=== PATIENT | male | born 1945 | race Hispanic/Latino ===

== ENCOUNTER → 2025-02-10 | Outpatient (CLI) | payer OTHER, MEDICARE ==
[~2025-02-10] MED LIST: GADOTERATE MEGLUMINE 10 MMOL/20 ML VIAL IV ONE
--- NOTE | 2025-02-11 03:01 | HMCIMG ---
EXAM MR Abdomen With and Without Intravenous Contrast CLINICAL HISTORY C22.0 ??? Evaluation for suspected liver cell carcinoma. TECHNIQUE Multisequence, multiplanar magnetic resonance imaging of the abdomen performed before and after intravenous contrast administration. Series acquired: 3 ??? COR SSFSE ARC (TR 738.5, TE 92.5, ET 1.0, Thk 5.0) 5 ??? AX SSFSE BH ARC (TR 676.8, TE 87.6, ET 1.0, Thk 5.0) 6 ??? AX 3D DUAL-ECHO BH (TR 6.5, TE 4.2, ET 1.0, Thk 4.4) 7 ??? AX T2 FRFSE FATSAT TALIB ARC (TR 95369.0, TE 106.5, ET 18.0, Thk 4.0) 8 ??? AX DWI b=500 FB (TR 3400.0, TE 59.0, ET 1.0, Thk 6.0) 10 ??? G+ COR LAVA ARC (TR 3.6, TE 1.7, Thk 4.4) 900???906 ??? AX LAVA DYN 5-phase series (arterial through delayed). CONTRAST Administered. 18 cc Clariscan IV contrast administered. COMPARISON None provided.FINDINGS Lower Thorax Right basal pleural thickening. Large left pleural effusion. Liver Liver is enlarged (17 cm) with diffuse steatosis. An exophytic solid???cystic mass arises from segment VII measuring 6.2 ??? 4.9 cm. The exophytic component abuts and infiltrates the right hemidiaphragm with irregular enhancing diaphragmatic thickening. Dynamic contrast study shows intense enhancement of solid elements during arterial phase with progressive heterogeneous enhancement in portal/delayed phases. Lesion shows internal cystic areas and restricted diffusion. Multiple additional arterially enhancing lesions in both lobes (10???35 mm) demonstrate heterogeneous enhancement with progressive portal???delayed phase filling, suspicious for multifocal malignancy. Gallbladder and Bile Ducts Gallbladder is moderately distended containing 8???10 dependent calculi measuring 6???7 mm. Gallbladder wall is thickened (0.6 cm) with an anterior-wall irregular infiltrative segment (maximum thickness 1.1 cm) demonstrating gas, mucosal enhancement, and solid irregular thickening concerning for neoplastic process. No intrahepatic biliary dilatation. Pancreas Normal contour and signal. No ductal dilation. Spleen Normal. Adrenals Normal. Kidneys Normal size and morphology. No hydronephrosis or mass. Stomach and Bowel Within limits of study, no acute abnormality. Lymph Nodes No discrete abdominal lymphadenopathy. Vasculature Portal and hepatic veins patent. No aortic aneurysm. 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 4.9 cm) demonstrating LR-M???type arterial hyperenhancement, progressive post-contrast fill-in, diffusion restriction, and direct diaphragmatic invasion; AJCC 8th edition: at least T4 disease with multifocal intrahepatic tumour burden. * Multiple arterially enhancing lesions (10???35 mm) throughout both lobes consistent with additional malignant deposits. 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 * No definite regional jin or distant metastatic disease identified within the imaged field; right basal pleural thickening is indeterminate. Large left pleural effusion is seen. * Radiologic???clinical correlation: Overall pattern reflects advanced upper abdominal malignancy dominated by an invasive LR-M hepatic mass with multifocal lesions and a concurrent gallbladder wall neoplastic process. /[place]
== END | disposition home or self-care (01) ==
LOC: RAH 08:37
PROVIDERS: ATTEND Surgery Surgical Oncology
DX: C22.0 Liver cell carcinoma (principal); K80.10 Calculus of gallbladder with chronic cholecystitis without obstruction; J90 Pleural effusion, not elsewhere classified; K82.8 Other specified diseases of gallbladder
CPT/HCPCS: 74183; A9575